=== PATIENT | female | born 1995 | race Caucasian/White ===

== ENCOUNTER 2023-08-05 21:56 | Emergency (ER) | payer OTHER, SELFPAY ==
[2023-08-05 21:59] VITALS: BP 145/100
--- NOTE | 2023-08-05 22:21 | ED.GENMED ---
History of Present Illness
<ORALIA Cameron - Last Filed: 08/06/23 00:40>
General
Chief Complaint: Back Pain
Source: patient
Exam Limitations: none
Time Seen by Provider: 08/05/23 22:04
Nursing documentation reviewed up to this point in time: agreed with
Travel History
Have you had any contact with someone who has COVID-19?: No
Do you have any symptoms of coronavirus? Fever > 100 degrees, chills, cough, shortness of breath, sore throat, loss of taste or smell, muscle aches, or headache?: No
History of Present Illness
History of Present Illness:
This is a 28 year old female with PMHx asthma presents to the ER for lower right sided back pain for 2-3 months. Patient admits being treated for a UTI on 07/21/2023 with Ciprofloxacin. She admits she had back pain and urinary symptoms of urgency
and frequency. Her urinary symptoms resolved but her back pain persisted. She reports her back pain radiates to her mid lower back where she now has bruising. She denies any known trauma or injury to her back. She also reports her back pain radiates
down her right leg with numbness and tingling. Worse with sitting and long car rides and alleviated with walking. She states mild right sided intermittent abdominal pain. She does not know what triggers her abdominal pain. She denies any fevers,
chills, headache, cp, sob, saddle paresthesias, bladder or bowel incontinence or NVD.
She also reports being diagnosed with flu and being treated with Tamiflu in June. She has ear infection following the flu and was treated with antibiotics. She then experienced back pain and urinary symptoms and was treated with Ciprofloxacin.
Past History
<ORALIA Cameron - Last Filed: 08/06/23 00:40>
Past History
ED Past Medical History: Asthma and Other
ED Past Surgical History: Tonsilectomy and Other
Social History
Tobacco: Smoker
Alcohol: None
Drug: None
Personal: Single
Living: with family
Employment: Employed
Family History
Family History: Other (Noncontributory)
Review of Systems
<Nevaeh Rice [facility] - Last Filed: 08/06/23 00:40>
Review of Systems
Allergies reviewed?: Yes
All Other Systems: Not applicable
Constitutional: Reports no symptoms
EENT: Reports no symptoms
Respiratory: Reports no symptoms
Cardiac: Reports no symptoms
ABD/GI: Reports abdominal pain (mild intermittent right sided )
: Reports no symptoms
Musculoskeletal: Reports back pain
Skin: Reports no symptoms
Neurological: Reports numbness (Numbness and tingling radiating down her R leg)
Endocrine: Reports no symptoms
Hematologic/Lymphatic: Reports bruising (Lower mid back)
Psychiatric: Reports no symptoms
Phy Exam
<Nevaeh Rice [facility] - Last Filed: 08/06/23 00:40>
General Physical Exam
General Presentation: well appearing and no apparent distress
General Skin: warm and dry
General Habitus: normal
General Mental: alert
General Hydration: appears well hydrated
ENT Exam
ENT Exam: EOMI, pharynx normal, neck supple and normocephalic
Eye Exam
Eye Exam: PERRL, cornea clear and conjunctiva normal
Cardiovascular Exam
Cardiovascular Exam: regular rate/rhythm, no edema, no murmur and normal peripheral pulses
Pulmonary Exam
Pulmonary Exam: lungs clear, no respiratory distress, no rales, no crackles, no rhonchi, no stridor, no wheezing and no cough
Gastrointestinal Exam
Gastrointestinal Exam: normal bowel sounds, non tender, soft, no organomegaly, no pulsatile mass and non distended
Neurological Exam
Neurological Exam: alert, oriented x3, no motor deficits and speech normal
Musculoskeletal Exam
Musculoskeletal Exam: full ROM and no edema
Skin Exam
Skin Exam: normal color, warm/dry, no rash and other (nonspecific erythematous rash on mid lower back )
Psychiatric Exam
Psychiatric Exam: normal mood/affect
Course
<ORALIA Cameron - Last Filed: 08/06/23 00:40>
Orders/Labs/Results
Orders:
Orders
08/05/23 22:27
Test Result ONCE
Lumbar Spine Complete, 4 View [CR Lumbar Spine Comp Min 4 Vw*] Urgent
Comment:
Reason For Exam: lbp
08/05/23 22:57
Complete Blood Count/With Diff Urgent
Comprehensive Metabolic Panel Urgent
HCG, Serum Qualitative Screen Urgent
Prothrombin Time Urgent
08/06/23 00:08
Magnesium Citrate [Citroma] 300 ml PO ONCE ONE
Abnormal Lab Results
08/05/23
22:57
Glucose 105 H mg/dl
(70-99)
08/05/23 22:57
08/05/23 22:57
Vital Signs
Initial and Last Documented VS:
Initial Vital Signs
Temp Pulse Resp BP Pulse Ox
98.2 F 116 24 145/100 100
08/05/23 21:59 08/05/23 21:59 08/05/23 21:59 08/05/23 21:59 08/05/23 21:59
Last Documented Vital Signs
Temp Pulse Resp BP Pulse Ox
98.2 F 94 20 138/88 99
08/05/23 21:59 08/06/23 00:10 08/06/23 00:10 08/06/23 00:10 08/06/23 00:10
<Tanner Salazar DO - Last Filed: 08/06/23 00:08>
Orders/Labs/Results
Orders:
Orders
08/05/23 22:27
Test Result ONCE
Lumbar Spine Complete, 4 View [CR Lumbar Spine Comp Min 4 Vw*] Urgent
Comment:
Reason For Exam: lbp
08/05/23 22:57
Complete Blood Count/With Diff Urgent
Comprehensive Metabolic Panel Urgent
HCG, Serum Qualitative Screen Urgent
Prothrombin Time Urgent
08/06/23 00:08
Magnesium Citrate [Citroma] 300 ml PO ONCE ONE
Abnormal Lab Results
08/05/23
22:57
Glucose 105 H mg/dl
(70-99)
08/05/23 22:57
08/05/23 22:57
Vital Signs
Initial and Last Documented VS:
Initial Vital Signs
Temp Pulse Resp BP Pulse Ox
98.2 F 116 24 145/100 100
08/05/23 21:59 08/05/23 21:59 08/05/23 21:59 08/05/23 21:59 08/05/23 21:59
Last Documented Vital Signs
Temp Pulse Resp BP Pulse Ox
98.2 F 94 20 138/88 99
08/05/23 21:59 08/06/23 00:10 08/06/23 00:10 08/06/23 00:10 08/06/23 00:10
<ORALIA Cameron - Last Filed: 08/06/23 00:40>
MDM/Problems Addressed
Differential Diagnosis Includes:
Muscle sprain, sciatica, cauda equina, pyelonephritis, constipation
Cauda equina considered due to back pain. However, she denies saddle paresthesia or bladder/bowel incontinence. Pyelonephritis considered due to recent UTI with back pain. However, there was no CVA tenderness on exam and she denies any recent
fevers. Sciatica considered due to back pain who associated paresthesia down her right leg. Muscle sprain considered because she admits resting in bed for a prolonged time with recent flu, ear infection, and UTI. Constipation considered due to
abdominal pain.
<Tanner Salazar DO - Last Filed: 08/06/23 00:08>
*Radiology
Radiology exam reviewed: all reviewed NAD by ED Provider (Heavy stool pattern)
*Critical Care Note
Total Time (30-74mins, 75-104mins- exclusive of procedures): Not Applicable
ED Attending Note
<ORALIA Cameron - Last Filed: 08/06/23 00:40>
-
Portions of this chart may have been created with voice recognition software.� Occasional wrong word or��sound alike� substitutions may have occurred due to the inherent limitations of voice recognition software.
<Tanner Salazar DO - Last Filed: 08/06/23 00:08>
ED Attending Note
Patient seen and examined by attending physician: Yes
I performed the substantive portion of visit, reviewed & personally made and approve the management plan that is documented in note by myself or MITA.: Yes
ED Attending Note:
This a pleasant 28-year-old female with right lower back pain for the last 2 to 3 months. Patient was recently treated for UTI. She did have back pain and urinary symptoms prior to her diagnosis. Today she states that her back pain radiates to
her mid lower back. She does have an erythematous rash and some bruising around it. She reports no known trauma. She states that this pain also radiates down her right leg. Denies bowel or bladder continence or retention. Patient states that
the pain is worsened when sitting up. Denies fever, chills, chest pain, or shortness of breath. Patient was seen in conjunction with the PA student. I have reviewed and agree with the history and treatment plan presented. On my independent
physical exam, patient is awake, alert, and oriented x3
Discharge Plan
Departure
Patient Disposition: Home (Routine Discharge)
Date of Disposition: 08/06/23
Time of Disposition: 00:05
Patient with high blood pressure during this ER visit?: Yes
Discharge Problem:
Acute low back pain, Constipation
Instructions: Low Back Pain (DC), Constipation, Adult ED, BLOOD PRESSURE
Prescriptions:
No Action
No Current Medications
0
Referrals:
Chaitanya Castañeda, DO [Family Provider] -
Interventions
Interventions:
*Risk Screen - Suicide Last Done: 08/05/23 21:59
*General Assessment Last Done: 08/05/23 22:40
*Neglect/Abuse Screening Last Done: 08/05/23 21:59
ED- Fall Risk Assessment Last Done: 08/05/23 22:47
*ED COVID-19 Vaccine History Last Done: 08/05/23 22:40
*Nursing Disposition Last Done: 08/06/23 00:26
ED-Musculoskeletal Assessment Last Done: 08/05/23 22:47
Discharge Date and Time
Discharge Date/Time: 08/06/23 00:26
Print Language: FRENCH
[2023-08-05 22:40] VITALS: BMI 35.9
[2023-08-05 23:05] LABS: % Basophils 0.3 % (0-2); % Eosinophils 2.6 % (0-6); % Immature Granulocytes 0.3 % (0-0.5); % Lymphocytes 41.4 % (20.5-51.1); % Monocytes 7.9 % (1.7-9.3); % Neutrophils 47.5 % (42.2-75.2); Absolute Eosinophils 0.2 10^3/uL (0-0.7); Absolute Lymphocytes 3.1 10^3/uL (1.2-3.4); Absolute Monocytes 0.6 10^3/uL (0.1-0.6); Absolute Neutrophils 3.5 10^3/uL (1.4-6.5); Hematocrit 37.1 % (37.0-47.0); Hemoglobin 13.4 g/dL (12.0-16.0); Mean Corp Hgb Conc. 36.1 g/dL (33.0-37.0); Mean Corpuscular Hgb 30.5 pg (27.0-31.0); Mean Corpuscular Volume 84.3 fL (81.0-99.0); Mean Platelet Volume 8.5 fL (7.4-10.4); Nucleated Red Blood Cells % 0 %; Platelet Count 316 10^3/uL (130-400); Red Cell Dist. Width 12.9 % (11.5-14.5); White Blood Cell Count 7.4 10^3/uL (4.8-10.8)
[2023-08-05 23:15] LABS: HCG, Serum Qualitative Screen Negative
[2023-08-05 23:16] LABS: INR 1.02; PT 13.2 Sec (11.4-14.6)
[2023-08-05 23:17] LABS: ALT (SGPT) 16 U/L (0-35); AST (SGOT) 22 U/L (14-36); Albumin 4.8 g/dl (3.5-5.0); Alkaline Phosphatase 53 U/L (38-126); Blood Urea Nitrogen 9 mg/dl (7-17); Calcium 9.6 mg/dl (8.4-10.2); Carbon Dioxide 23 mmol/L (22-30); Chloride 107 mmol/L (98-107); Estimated Creatinine Clearance > 125 ml/min; Glucose 105 mg/dl (70-99); Potassium 3.9 mmol/L (3.5-5.1); Sodium 136 mmol/L (135-145); Total Bilirubin 0.5 mg/dl (0.2-1.3); Total Protein 7.2 g/dl (6.3-8.2); eGFR > 60.00
[2023-08-06 00:10] VITALS: BP 138/88
[2023-08-06] MEDS: CITROMA 300 ML PO (00:22)
== END 2023-08-06 00:26 | disposition home or self-care (01) ==
LOC: EMR 21:56
PROVIDERS: EMERGENCY PHYSICIAN Student in an Organized Health Care Education/Training Program; FAMILY PHYSICIAN Internal Medicine
DX: M54.50 Low back pain, unspecified (principal); K59.00 Constipation, unspecified; R03.0 Elevated blood-pressure reading, without diagnosis of hypertension; F17.200 Nicotine dependence, unspecified, uncomplicated; J45.909 Unspecified asthma, uncomplicated
CPT/HCPCS: 99284; 72110; 80053; 84703; 85025; 85610